=== PATIENT | female | born 1995 | race American Indian/Alaskan Native ===

== ENCOUNTER 2019-07-12 17:41 | Observation (INO) | payer MEDICAID ==
--- NOTE | 2019-07-12 19:08 | Emergency Department Report ---
Blank Doc - Documentation Documentation: 23-year-old female that presents with right side abdominal pain with n/v. This initial assessment/diagnostic orders/clinical plan/treatment(s) is/are subject to change based on patient's health status, clinical progression and re- assessment by fellow clinical providers in the ED. Further treatment and workup at subsequent clinical providers discretion. Patient/guardians urged not to elope from the ED as their condition may be serious if not clinically assessed and managed. Initial orders include: 1- Patient sent to [facility] for further evaluation and treatment 2- labs 3- UA
[2019-07-12 20:33] LABS: Hematocrit 24.9 % (30.3-42.9); Hemoglobin 7.1 gm/dl (10.1-14.3); Mean Corpuscular HGB Conc 29 % (30-34); Mean Corpuscular Volume 54 fl (79-97); Red Blood Count 4.63 M/mm3 (3.65-5.03)
[2019-07-12 20:34] LABS: Red Cell Distribution Width 20.6 % (13.2-15.2)
[2019-07-12 20:35] LABS: Alanine Aminotransferase 9 units/L (7-56); Albumin 4.4 g/dL (3.9-5); BUN/Creatinine Ratio 17; Blood Urea Nitrogen 10 mg/dL (7-17); Calcium 9.2 mg/dL (8.4-10.2); Hemolysis Index 2
[2019-07-12 21:21] LABS: Bilirubin,Urine NEG (Negative); Blood,Urine NEG (Negative); Color,Urine Yellow (Yellow); Mucus,Urine FEW /HPF; Protein,Urine <15 mg/dL mg/dL (Negative); Urobilinogen,Urine < 2.0 mg/dL (<2.0)
[2019-07-12 21:54] LABS: Anisocytosis 2+; Macrocytosis Few; Total Cells Counted 100
[2019-07-12 21:55] LABS: Hypochromasia 2+; Target Cells Few
[2019-07-12 21:56] LABS: Platelet Estimate Consistent w Auto; Tear Drop Cells Rare
[2019-07-12 22:02] LABS: Platelet Count 197 K/mm3 (140-440)
[2019-07-12] MEDS ORDERED: SODIUM CHLORIDE 0.9% 1000 ML 1,000 ML IV ONE (23:13)
[2019-07-12] MEDS ORDERED: KETOROLAC 30 MG/1 ML INJ IV ONE (23:13)
[2019-07-12] MEDS ORDERED: ONDANSETRON 4 MG/2 ML INJ IV ONE (23:13)
--- NOTE | 2019-07-13 00:59 | Cat Scan Report ---
CT ABDOMEN AND PELVIS WITH IV CONTRAST INDICATION: abdominal pain: RLQ pain. COMPARISON: None available. TECHNIQUE: Axial CT images were obtained through the abdomen and pelvis after 100 mL IV contrast. All CT scans a t this location are performed using CT dose reduction for ALARA by means of automated exposure contro l. FINDINGS -- ABDOMEN: Lung Bases: No acute abnormality. Liver: Normal. Gallbladder: Normal. Bile Ducts: Normal. Pancreas: Normal. Spleen: Normal. Adrenals: Normal. Right Kidney and Proximal Ureter: Normal. Left Kidney and Proximal Ureter: Normal. Stomach and Bowel: Normal. Lymph Nodes: No significant adenopathy. Aorta: No significant abnormality. IVC: Normal. Additional Findings: None. FINDINGS -- PELVIS: Urinary Bladder and Distal Ureters: Normal. Reproductive Organs: No acute abnormality. Appendix: Acute appendicitis.. Bowel: No acute abnormality. Free Fluid: None. Lymph Nodes: No significant adenopathy. Additional Findings: None. Skeletal System: No acute abnormality. IMPRESSION: Acute appendicitis. No perforation or abscess. Signer Name: Buster Riojas MD Signed: 07/13/2019 12:54 AM Workstation Name: [id number]
--- NOTE | 2019-07-13 02:37 | Emergency Department Report ---
<KATHYVALARIE - Last Filed: 07/13/19 03:13> ED Abdominal Pain HPI - General Chief Complaint: Abdominal Pain Stated Complaint: PAIN Time Seen by Provider: 07/12/19 19:07 - Related Data Allergies Allergy/AdvReac Type Severity Reaction Status Date / Time No Known Allergies Allergy Unverified 07/12/19 17:46 ED Medical Decision Making - Lab Data Result diagrams: 07/12/19 19:21 07/12/19 19:21 - Medical Decision Making Ms. Bowser is a 23-year-old female with history of iron deficiency anemia who pr esents with 3 days of right lower quadrant abdominal pain. Pain is worse with movement and palpation. She has history of 3. Also has history of asthma. She does smoke tobacco. I evaluated the patient [id number]. Review CT abdomen and pelvis. Patient has acute appendicitis without perforation or abscess. She is currently not exhibiting signs of SIRS/sepsis. I had a consultation general surgeon combination machine tool operator Dr. Scott. He has agreed to provide surgical consultation for the patient. He plans to take patient to the OR this morning. ED Disposition Clinical Impression: Acute abdominal pain in right lower quadrant Acute appendicitis Qualifiers: Acute appendicitis type: unspecified acute appendicitis type Qualified Code(s): K35.80 - Unspecified acute appendicitis Disposition: OP ADMIT IP TO THIS HOSP Condition: Stable Instructions: Abdominal Pain (ED) Referrals: PRIMARY CARE, [Primary Care Provider] - 3-5 Days Print Language: NEPALESE <DARELL MIDDLETON - Last Filed: 07/13/19 03:28> ED Abdominal Pain HPI - General Source: patient Mode of arrival: Ambulatory Limitations: No Limitations - History of Present Illness Initial Comments: Patient is a 23-year-old female with a history of chronic iron deficiency anemia and was noncompliant with taking iron tablets presents to the ED with complaint of acute onset persistent severe right lower quadrant abdominal pain that radiates to the periumbilical area for the last 2 days with nausea. Patient denies dysuria, urinary frequency and urgency, vaginal bleeding, vaginal discharge, dizziness, chest pain, shortness of breath, fever, chills, diarrhea, low back pain or hematuria. MD Complaint: abdominal pain, other (nausea and vomiting) -: Sudden, days(s) (2) Location: periumbilical, RLQ Radiation: RLQ Migration to: no migration Severity scale (0 -10): 7 Quality: aching, sharp Consistency: constant Improves With: nothing Worsens With: nothing Associated Symptoms: denies other symptoms, nausea. denies: vomiting, diarrhea, fever, chills, dysuria, hematemesis, hematochezia, melena, anorexia, syncope ED Review of Systems ROS: Stated complaint: PAIN Other details as noted in HPI Constitutional: denies: chills, fever Eyes: denies: eye pain, eye discharge, vision change ENT: denies: ear pain, throat pain Respiratory: denies: cough, shortness of breath, wheezing Cardiovascular: denies: chest pain, palpitations Endocrine: no symptoms reported Gastrointestinal: abdominal pain, nausea. denies: diarrhea, constipation, hematemesis Genitourinary: denies: urgency, dysuria, discharge Musculoskeletal: denies: back pain, joint swelling, arthralgia Skin: denies: rash, lesions Neurological: denies: headache, weakness, paresthesias Psychiatric: denies: anxiety, depression Hematological/Lymphatic: denies: easy bleeding, easy bruising ED Past Medical Hx - Past Medical History Previous Medical History?: Yes Hx Asthma: Yes Additional medical history: Anemia - Surgical History Past Surgical History?: Yes Additional Surgical History: C section - Social History Smoking Status: Never Smoker Substance Use Type: None ED Physical Exam - General Limitations: No Limitations General appearance: alert, in no apparent distress - Head Head exam: Present: atraumatic, normocephalic, normal inspection - Eye Eye exam: Present: normal appearance, PERRL, EOMI Pupils: Present: normal accommodation - ENT ENT exam: Present: normal exam, normal orophraynx, mucous membranes moist, TM's normal bilaterally, normal external ear exam - Neck Neck exam: Present: normal inspection, full ROM - Respiratory Respiratory exam: Present: normal lung sounds bilaterally. Absent: respiratory distress, wheezes, rales, stridor, chest wall tenderness, accessory muscle use, decreased breath sounds - Cardiovascular Cardiovascular Exam: Present: regular rate, normal rhythm, normal heart sounds. Absent: systolic murmur, diastolic murmur, rubs, gallop - GI/Abdominal GI/Abdominal exam: Present: soft, tenderness (RLQ tenderness with guarding), normal bowel sounds. Absent: guarding, rebound, hyperactive bowel sounds, hypoactive bowel sounds, organomegaly, mass - Extremities Exam Extremities exam: Present: normal inspection, full ROM, normal capillary refill - Back Exam Back exam: Present: normal inspection, full ROM. Absent: tenderness, muscle sp asm, paraspinal tenderness, vertebral tenderness - Neurological Exam Neurological exam: Present: alert, oriented X3, CN II-XII intact, normal gait, reflexes normal - Psychiatric Psychiatric exam: Present: normal affect, normal mood - Skin Skin exam: Present: warm, dry, intact, normal color. Absent: rash ED Course Vital Signs 07/12/19 07/12/19 07/12/19 19:10 23:39 23:40 Temperature 98.5 F 98.8 F Pulse Rate 79 75 Respiratory 18 16 16 Rate Blood Pressure 125/74 Blood Pressure 112/69 [Left] O2 Sat by Pulse 100 100 Oximetry ED Medical Decision Making - Lab Data Result diagrams: 07/12/19 19:21 07/12/19 19:21 - Radiology Data Radiology results: report reviewed, [place] [address] Cat Scan Report Signed Patient: AYDEE BOWSER MR#: [id number] : 1995 Acct:[id number] Age/Sex: 23 / F ADM Date: 07/12/19 Loc: ED Attending Dr: Ordering Physician: HERI SALTER Date of Service: 07/12/19 Procedure(s): CT abdomen pelvis w con Accession Number(s): [id number] cc: HERI SALTER CT ABDOMEN AND PELVIS WITH IV CONTRAST INDICATION: abdominal pain: RLQ pain. COMPARISON: None available. TECHNIQUE: Axial CT images were obtained through the abdomen and pelvis after 100 mL IV contrast. All CT scans at this location are performed using CT dose reduction for ALARA by means of automated exposure control. FINDINGS -- ABDOMEN: Lung Bases: No acute abnormality. Liver: Normal. Gallbladder: Normal. Bile Ducts: Normal. Pancreas: Normal. Spleen: Normal. Adrenals: Normal. Right Kidney and Proximal Ureter: Normal. Left Kidney and Proximal Ureter: Normal. Stomach and Bowel: Normal. Lymph Nodes: No significant adenopathy. Aorta: No significant abnormality. IVC: Normal. Additional Findings: None. FINDINGS -- PELVIS: Urinary Bladder and Distal Ureters: Normal. Reproductive Organs: No acute abnormality. Appendix: Acute appendicitis.. Bowel: No acute abnormality. Free Fluid: None. Lymph Nodes: No significant adenopathy. Additional Findings: None. Skeletal System: No acute abnormality. IMPRESSION: Acute appendicitis. No perforation or abscess. Signer Name: Buster Riojas MD Signed: 07/13/2019 12:54 AM Workstation Name: [id number] Transcribed By: Dictated By: Buster Riojas MD Electronically Authenticated By: Buster Riojas MD Signed Date/Time: 07/13/19 0054 - Medical Decision Making This is a 23-year-old female who presented to the ED with complaint of acute onset persistent severe right lower quadrant pain that radiates to the periumbilical area with nausea for the last 2 days. In the ED, patient is alert and oriented 3 and is not in distress but appears to be in pain. Lab test results were reviewed and showed chronic anemia characterized by hemoglobin of 7.1 and hematocrit of 24.9. The rest of the lab test results are nonactionable. Abdomen pelvis CT scan with contrast shows acute appendicitis. These findings were discussed with the ED attending physician Dr. Chow who discussed the patient's case with Dr. Schwab the general surgeon combination machine tool operator. The patient's case was also discussed with the Hospitalist physician combination machine tool operator Dr. Unger who admitted the patient to the hospital for further evaluation. - Differential Diagnosis acuet appendicitis; ovarian cyst; UTI; Ectopic ; gastroenteritis Critical care attestation.: If time is entered above; I have spent that time in minutes in the direct care of this critically ill patient, excluding procedure time. ED Disposition Is pt being admited?: Yes Does the pt Need Aspirin: No Time of Disposition: 02:41
[2019-07-13] MEDS ORDERED: SODIUM CHLORIDE 0.9% 1000 ML 1,000 ML IV ONE (03:18)
[2019-07-13] MEDS ORDERED: PIPERACIL/TAZOBACTA 4.5/NS 100 4.5 GM/100 ML VIAL IV ONE (03:18)
[2019-07-13] MEDS ORDERED: MORPHINE 4 MG/1 ML INJ IV ONE (03:18)
[2019-07-13] MEDS ORDERED: ACETAMINOPHEN 325 MG TAB PO PRN (04:02)
[2019-07-13] MEDS ORDERED: MORPHINE 2 MG/1 ML INJ IV PRN (04:02)
[2019-07-13] MEDS ORDERED: ONDANSETRON 4 MG/2 ML INJ IV PRN ×2 (04:02→04:29)
--- NOTE | 2019-07-13 04:03 | History and Physical Report ---
History of Present Illness History of present illness: 23-year-old boy with a history of asthma, anemia comes emergency room with complaints of abdominal pain that started 3 days ago. Pain is in right lower quadrant which he describes a sharp pain, intermittent but has now become constant today, intensity 7/10, no radiation, cannot identify exacerbating factor, relieved with IV pain medication given in the emergency room. Admits to nausea vomiting review of systems Constitutional: no weight loss, fever, chills Ears, eyes, nose, mouth and throat: no nasal congestion, no nasal discharge, no sinus pressure, blurry vision, diplopia Neck: No neck pain or rigidity. Cardiovascular: No palpitations,chest pain Respiratory: No cough, shortness of breath Gastrointestinal: No hematochezia, abdominal pain Genitourinary : no dysuria, frequency , hematuria Musculoskeletal: no muscle ache , joint pain Integumentary: no rash, no pruritis Neurological: no parathesias, focal weakness Endocrine: no cold or heat intolerance, no polyuria or polydipsia Hematologic/Lymphatic: no easy bruising, no easy bleeding, no gland swelling Allergic/Immunologic: no urticaria, no angioedema. PAST MEDICAL HISTORY :asthma, anemia PAST SURGICAL HISTORY: C/section x3 SOCIAL HISTORY: No drugs, alcohol, + tobacco FAMILY HISTORY: Hypertension Medications and Allergies Allergies Allergy/AdvReac Type Severity Reaction Status Date / Time No Known Allergies Allergy Unverified 07/12/19 17:46 Home Medications Medication Instructions Recorded Confirmed Last Taken Type Ferrous Sulfate [Ferrous Sulfate 324 mg PO TID #90 tablet. 07/15/19 Unknown Rx 324 MG] HYDROcodone/APAP 5-325 [[place] 1 each PO Q6HR PRN #20 tablet 07/15/19 Unknown Rx 5/325] levoFLOXacin [Levaquin TAB] 500 mg PO QDAY #5 tablet 07/15/19 Unknown Rx Active Meds: Active Medications Sodium Chloride (Nacl 0.9% 1000 Ml) 1,000 mls @ 999 mls/hr IV BOLUS ONE Stop: 07/13/19 04:18 Exam - Physical Exam Narrative exam: Gen. appearance: Patient lying in bed, no apparent distress HEENT: Normocephalic, atraumatic, pupils equally round and reactive to light, extraocular movement intact, and no sclericterus,. No JVD or thyromegaly or nodule,neck supple, no carotid bruit ,mucous membranes moist, no exudate or erythema Heart: S1, S2, regular rate and rhythm Lungs: Clear bilaterally, breathing comfortable Abdomen: Positive bowel sounds, tender in the rlq, no rebound or guarding, nondistended, no organomegaly Extremity:no edema cyanosis, clubbing Skin: no rash, dry, warm Neuro: Oriented 3, cranial nerves II-12 intact, speech is fluent, motor and sensory intact - Constitutional Vitals: Temp Pulse Resp BP Pulse Ox 98.8 F 75 16 112/69 100 07/12/19 23:39 07/12/19 23:39 07/12/19 23:40 07/12/19 23:39 07/12/19 23:39 Results - Labs CBC & Chem 7: 07/15/19 05:46 07/14/19 05:31 Labs: Abnormal lab results 07/12/19 07/12/19 Range/Units 19:21 19:21 Hgb 7.1 L (10.1-14.3) gm/dl Hct 24.9 L (30.3-42.9) % MCV 54 L (79-97) fl MCH 15 L (28-32) pg MCHC 29 L (30-34) % RDW 20.6 H (13.2-15.2) % Creatinine 0.6 L (0.7-1.2) mg/dL Total Protein 8.9 H (6.3-8.2) g/dL - Imaging and Cardiology CT scan - abdomen: report reviewed CT scan - pelvis: report reviewed Assessment and Plan Assessment Acute Appendicitis anemia Asthma, stable Plan Admit to medicine NPO, start IV fluid, morphine Surgery was consulted to see the patient Hold lovenox
[2019-07-13] MEDS ORDERED: LIDOCAINE MPF (2%) 20 MG/1 ML VIAL 5 ML ONE (04:21)
[2019-07-13] MEDS ORDERED: PROPOFOL 200 MG/20 ML VIAL IV ONE (04:21)
[2019-07-13] MEDS ORDERED: ROCURONIUM 50 MG/5 ML INJ IV ONE (04:21)
[2019-07-13] MEDS ORDERED: HYDROmorphone 1 MG/1 ML INJ ONE (04:21)
[2019-07-13] MEDS ORDERED: fentaNYL 100 MCG/2 ML INJ IV PRN (04:29)
[2019-07-13] MEDS ORDERED: BUPIVACAINE/PF (0.5%) 5 MG/1 ML 30 ML VIAL INFILTRATI ONE (04:30)
[2019-07-13] MEDS ORDERED: BUPIVACAINE-EPINEPHRINE/PF 0.5%-1:200,000 (30 ML) VIAL INFILTRATI ONE ×2 (04:31→05:45)
--- NOTE | 2019-07-13 04:33 | Anesthesia Day of Surgery ---
Anesthesia Day of Surgery - Day of Surgery Patient Examined: Yes Patient H&P Reviewed: Yes Patient is NPO: Yes
--- NOTE | 2019-07-13 04:35 | Anesthesia Consultation ---
Anesthesia Consult and Med Hx Date of service: 07/13/19 - Airway Anesthetic Teeth Evaluation: Chipped ROM Head & Neck: Adequate Mental/Hyoid Distance: Adequate Mallampati Class: Class II Intubation Access Assessment: Good - Pre-Operative Health Status ASA Pre-Surgery Classification: ASA2, Emergency Proposed Anesthetic Plan: General - Pulmonary Hx Smoking: Yes Hx Asthma: Yes (Stable) Hx Respiratory Symptoms: Yes (Had SOB from panic attack a few weeks ago) - Central Nervous System Hx Psychiatric Problems: Yes (Anxiety/panic D/O) - Gastrointestinal Hx Gastroesophageal Reflux Disease: No - Hematic Hx Anemia: Yes (Iron deficiency; non-compliant with FeSO4 RX) Hx Sickle Cell Disease: No
[2019-07-13] MEDS ORDERED: SODIUM CHLORIDE 0.9% 1000 ML 1,000 ML IV SCH (05:00)
--- NOTE | 2019-07-13 05:04 | History and Physical Report ---
ADMITTING DIAGNOSIS: Rule out appendicitis. HISTORY OF PRESENT ILLNESS: The patient is a healthy 23-year-old female who presents to the Emergency Room with a 3-day history of progressively worsening right lower quadrant abdominal pain accompanied by nausea and vomiting. PAST MEDICAL HISTORY: Pertinent for asthma, anxiety, and anemia. PAST SURGICAL HISTORY: Status post x 3. ALLERGIES: No known allergies. MEDICATIONS: No medications. FAMILY HISTORY: Diabetes. SOCIAL HISTORY: Occasional cigarettes and denies any drinking. PHYSICAL EXAMINATION: GENERAL: At this time reveals the patient to be awake, alert, cooperative, in moderate discomfort, but no acute distress. VITAL SIGNS: Show her to be afebrile with a temperature of 98.8, blood pressure is 112/69, pulse of 72, respirations of 16. HEENT: Pupils are equal and reactive to light and accommodation. Sclerae are nonicteric. NECK: Full range of motion, no adenopathy or thyromegaly. CHEST: Lungs are clear to auscultation and percussion. HEART: Normal sinus rhythm, no gross murmurs. ABDOMEN: Examination of the abdomen reveals to be soft. There is localized right lower quadrant abdominal tenderness with mild guarding. Bowel sounds are present, but hypoactive. EXTREMITIES: Show full range of motion x 4, no edema or cyanosis. NEUROLOGIC: Grossly within normal limits. LABORATORY DATA: Lab work at present includes a CBC shows a white count of 7.1, H and H is 7.1 and 24.9. Electrolytes are essentially within normal limits. LFTs are also within normal limits. Lipase is 25. A CT scan of the abdomen has been performed, which is consistent with acute appendicitis. No evidence of perforation or abscess at this time. IMPRESSION: At this time is that of a 23-year-old female with past history of anemia, rule out appendicitis. PLAN: To proceed with laparoscopic appendectomy, possible open appendectomy. Risks, indications, and complications have been reviewed with the patient and family. The patient understands and has signed her consent. JOB# [id number] FP/NTS
[2019-07-13] MEDS ORDERED: SODIUM CHLORIDE 0.9% IRR 1,500 ML BOTTLE IR ONE (05:45)
[2019-07-13] MEDS ORDERED: ONDANSETRON 4 MG/2 ML INJ ONE (05:47)
[2019-07-13] MEDS ORDERED: NEOSTIGMINE 10MG/10 ML INJ MDV ONE (05:47)
[2019-07-13] MEDS ORDERED: KETOROLAC 30 MG/1 ML INJ ONE (05:47)
[2019-07-13] MEDS ORDERED: GLYCOPYRROLATE 0.4 MG/2 ML INJ ONE (05:47)
[2019-07-13] MEDS ORDERED: SODIUM CHLORIDE 0.9% 1000 ML 1,000 ML ONE (06:10)
[2019-07-13] MEDS ORDERED: fentaNYL 100 MCG/2 ML INJ ONE (06:36)
--- NOTE | 2019-07-13 06:40 | Operative Report ---
PREOPERATIVE DIAGNOSIS: Rule out appendicitis. POSTOPERATIVE DIAGNOSIS: Rule out appendicitis. PROCEDURE: Laparoscopic appendectomy. SURGEON: Elias Schwab MD ANESTHESIA: General. ESTIMATED BLOOD LOSS: Minimal. DRAINS: None. COMPLICATIONS: None. DESCRIPTION OF PROCEDURE: The patient was taken to the operating room, prepped and draped in usual sterile fashion. Veress needle was inserted and CO2 insufflation begun. A 5 mm trocar was then inserted and camera inserted. All other trocars inserted under direct visualization. The patient was then placed in a steep Trendelenburg left lateral decubitus position. The cecum was identified and the tenia followed down to the appendix. The appendiceal tip was noted to be somewhat thickened. The mesoappendix was transected with the Harmonic. The base of the appendix was secured with a MARIA R stapler. The staple line was then carefully inspected and noted to be secure with no evidence of bleeding or bile leak. No other bleeding was noted in the area of the mesoappendix. The appendix was then placed in the Endopouch and brought out through the infraumbilical port site. This area had an umbilical hernia noted at this site and the tissues were all very weak. The patient's entire abdominal musculature is weak secondary to her 3 C-sections. The fascia at the umbilicus was then closed with 2 [id number] 0 Vicryl suture due to its weakness. The staple line was inspected through the lateral 5 mm port site to assure no entrapment of bowel or omentum, none were seen. The two lateral 5 mm ports were removed under direct visualization. No bleeding or oozing noted. The final 5 mm port was used to expel the CO2 and the trocar removed. The skin at all port sites were closed with subcuticular 4-0 Vicryl. A 0.5% Marcaine was infiltrated over the port site for postoperative pain relief. Because of her abdominal weakness and umbilical hernia noted, abdominal binder will also be placed. The patient tolerated the procedure well and left the OR in stable condition. JOB# [id number] LESLIE/REJI
[2019-07-13] MEDS ORDERED: diphenhydrAMINE 50 MG/ML VIAL ONE (06:49)
[2019-07-13] MEDS: diphenhydrAMINE 50 MG/ML VIAL IV PRN ×2 (06:50→07:00)
[2019-07-13] MEDS ORDERED: ENOXAPARIN 40 MG/0.4 ML INJ SUB-Q SCH (10:00)
[2019-07-13] MEDS: ONDANSETRON 4 MG/2 ML INJ IV PRN ×2 (11:32→21:36)
[2019-07-13] MEDS: MORPHINE 2 MG/1 ML INJ IV PRN ×4 (11:33→21:35)
[2019-07-13] MEDS: D5W/0.45% NACL 1,000 ML IV SCH (12:08)
[2019-07-13] MEDS ORDERED: ALBUTEROL 2.5 MG/3 ML NEBU IH PRN (15:25)
--- NOTE | 2019-07-13 15:28 | Progress Note ---
Assessment and Plan Assessment and plan: Acute Appendicitis -Status post appendectomy -On when necessary narcotics and IV antibiotic with levofloxacin -Surgery following Chronic microcytic anemia -Will check anemia panel -Will monitor H&H and transfuse for hb<7 Asthma -stable -On PRN neb tx Cough -on Mucinex DVT prophylaxis: SCD Disposition: For discharge when cleared by surgery and medically stable History Interval history: Patient was seen post surgery and she reports right-sided abdominal pain rated 10/10. She also complained of cough Hospitalist Physical - Constitutional Vitals: Temp Pulse Resp BP Pulse Ox 98.2 F 73 16 112/57 99 07/13/19 07:30 07/13/19 07:30 07/13/19 07:30 07/13/19 07:30 07/13/19 07:57 General appearance: Present: no acute distress - EENT Eyes: Present: PERRL, EOM intact ENT: hearing intact, clear oral mucosa - Neck Neck: Present: supple - Respiratory Respiratory effort: normal Respiratory: bilateral: CTA - Cardiovascular Rhythm: regular Heart Sounds: Present: S1 & S2 - Extremities Extremities: No edema - Abdominal General gastrointestinal: soft, tender (RT side), non-distended, normal bowel sounds - Integumentary Integumentary: Present: warm, dry - Psychiatric Psychiatric: appropriate mood/affect - Neurologic Neurologic: CNII-XII intact Results - Labs CBC & Chem 7: 07/12/19 19:21 07/12/19 19:21 Labs: Laboratory Last Values WBC 7.1 K/mm3 (4.5-11.0) 07/12/19 19:21 RBC 4.63 M/mm3 (3.65-5.03) 07/12/19 19:21 Hgb 7.1 gm/dl (10.1-14.3) L 07/12/19 19:21 Hct 24.9 % (30.3-42.9) L 07/12/19 19:21 MCV 54 fl (79-97) L 07/12/19 19:21 MCH 15 pg (28-32) L 07/12/19 19:21 MCHC 29 % (30-34) L 07/12/19 19:21 RDW 20.6 % (13.2-15.2) H 07/12/19 19:21 Plt Count 197 K/mm3 (140-440) 07/12/19 19:21 Add Manual Diff Complete 07/12/19 19:21 Total Counted 100 07/12/19 19:21 Seg Neuts % (Manual) 67.0 % (40.0-70.0) 07/12/19 19:21 Band Neutrophils % 0 % 07/12/19 19:21 Lymphocytes % (Manual) 29.0 % (13.4-35.0) 07/12/19 19:21 Reactive Lymphs % (Man) 0 % 07/12/19 19:21 Monocytes % (Manual) 2.0 % (0.0-7.3) 07/12/19 19:21 Eosinophils % (Manual) 1.0 % (0.0-4.3) 07/12/19 19:21 Basophils % (Manual) 1.0 % (0.0-1.8) 07/12/19 19:21 Metamyelocytes % 0 % 07/12/19 19:21 Myelocytes % 0 % 07/12/19 19:21 Promyelocytes % 0 % 07/12/19 19:21 Blast Cells % 0 % 07/12/19 19:21 Nucleated RBC % Not Reportable 07/12/19 19:21 Seg Neutrophils # Man 4.8 K/mm3 (1.8-7.7) 07/12/19 19:21 Band Neutrophils # 0.0 K/mm3 07/12/19 19:21 Lymphocytes # (Manual) 2.1 K/mm3 (1.2-5.4) 07/12/19 19:21 Abs React Lymphs (Man) 0.0 K/mm3 07/12/19 19:21 Monocytes # (Manual) 0.1 K/mm3 (0.0-0.8) 07/12/19 19:21 Eosinophils # (Manual) 0.1 K/mm3 (0.0-0.4) 07/12/19 19:21 Basophils # (Manual) 0.1 K/mm3 (0.0-0.1) 07/12/19 19:21 Metamyelocytes # 0.0 K/mm3 07/12/19 19:21 Myelocytes # 0.0 K/mm3 07/12/19 19:21 Promyelocytes # 0.0 K/mm3 07/12/19 19:21 Blast Cells # 0.0 K/mm3 07/12/19 19:21 WBC Morphology Not Reportable 07/12/19 19:21 Hypersegmented Neuts Not Reportable 07/12/19 19:21 Hyposegmented Neuts Not Reportable 07/12/19 19:21 Hypogranular Neuts Not Reportable 07/12/19 19:21 Smudge Cells Not Reportable 07/12/19 19:21 Toxic Granulation Not Reportable 07/12/19 19:21 Toxic Vacuolation Not Reportable 07/12/19 19:21 Dohle Bodies Not Reportable 07/12/19 19:21 Pelger-Huet Anomaly Not Reportable 07/12/19 19:21 Amara Rods Not Reportable 07/12/19 19:21 Platelet Estimate Consistent w auto 07/12/19 19:21 Clumped Platelets Not Reportable 07/12/19 19:21 Plt Clumps, EDTA Not Reportable 07/12/19 19:21 Large Platelets Not Reportable 07/12/19 19:21 Giant Platelets Not Reportable 07/12/19 19:21 Platelet Satelliting Not Reportable 07/12/19 19:21 Plt Morphology Comment Not Reportable 07/12/19 19:21 RBC Morphology Not Reportable 07/12/19 19:21 Dimorphic RBCs Not Reportable 07/12/19 19:21 Polychromasia Few 07/12/19 19:21 Hypochromasia 2+ 07/12/19 19:21 Poikilocytosis Not Reportable 07/12/19 19:21 Anisocytosis 2+ 07/12/19 19:21 Microcytosis 1+ 07/12/19 19:21 Macrocytosis Few 07/12/19 19:21 Spherocytes Not Reportable 07/12/19 19:21 Pappenheimer Bodies Not Reportable 07/12/19 19:21 Sickle Cells Not Reportable 07/12/19 19:21 Target Cells Few 07/12/19 19:21 Tear Drop Cells Rare 07/12/19 19:21 Ovalocytes Not Reportable 07/12/19 19:21 Helmet Cells Not Reportable 07/12/19 19:21 [place] Bodies Not Reportable 07/12/19 19:21 [place] Rings Not Reportable 07/12/19 19:21 [place] Cells Not Reportable 07/12/19 19:21 Bite Cells Not Reportable 07/12/19 19:21 Crenated Cell Not Reportable 07/12/19 19:21 Elliptocytes Not Reportable 07/12/19 19:21 Acanthocytes (Spur) Not Reportable 07/12/19 19:21 Rouleaux Not Reportable 07/12/19 19:21 Hemoglobin C Crystals Not Reportable 07/12/19 19:21 Schistocytes Not Reportable 07/12/19 19:21 Malaria parasites Not Reportable 07/12/19 19:21 Greg Bodies Not Reportable 07/12/19 19:21 Hem Pathologist Commnt No 07/12/19 19:21 Sodium 139 mmol/L (137-145) 07/12/19 19:21 Potassium 3.7 mmol/L (3.6-5.0) 07/12/19 19:21 Chloride 104.4 mmol/L (98-107) 07/12/19 19:21 Carbon Dioxide 25 mmol/L (22-30) 07/12/19 19:21 Anion Gap 13 mmol/L 07/12/19 19:21 BUN 10 mg/dL (7-17) 07/12/19 19:21 Creatinine 0.6 mg/dL (0.7-1.2) L 07/12/19 19:21 Estimated GFR > 60 ml/min 07/12/19 19:21 BUN/Creatinine Ratio 17 % 07/12/19 19:21 Glucose 76 mg/dL (65-100) 07/12/19 19:21 Calcium 9.2 mg/dL (8.4-10.2) 07/12/19 19:21 Total Bilirubin 0.30 mg/dL (0.1-1.2) 07/12/19 19:21 AST 16 units/L (5-40) 07/12/19 19:21 ALT 9 units/L (7-56) 07/12/19 19:21 Alkaline Phosphatase 49 units/L (35-129) 07/12/19 19:21 Total Protein 8.9 g/dL (6.3-8.2) H 07/12/19 19:21 Albumin 4.4 g/dL (3.9-5) 07/12/19 19:21 Albumin/Globulin Ratio 1.0 % 07/12/19 19:21 Lipase 25 units/L (13-60) 07/12/19 19:21 HCG, Qual Negative (Negative) 07/12/19 19:21 Urine Color Yellow (Yellow) 07/12/19 20:53 Urine Turbidity Clear (Clear) 07/12/19 20:53 Urine pH 5.0 (5.0-7.0) 07/12/19 20:53 Ur Specific [place] 1.012 (1.003-1.030) 07/12/19 20:53 Urine Protein <15 mg/dl mg/dL (Negative) 07/12/19 20:53 Urine Glucose (UA) Neg mg/dL (Negative) 07/12/19 20:53 Urine Ketones Neg mg/dL (Negative) 07/12/19 20:53 Urine Blood Neg (Negative) 07/12/19 20:53 Urine Nitrite Neg (Negative) 07/12/19 20:53 Urine Bilirubin Neg (Negative) 07/12/19 20:53 Urine Urobilinogen < 2.0 mg/dL (<2.0) 07/12/19 20:53 Ur Leukocyte Esterase Neg (Negative) 07/12/19 20:53 Urine WBC (Auto) 1.0 /HPF (0.0-6.0) 07/12/19 20:53 Urine RBC (Auto) 2.0 /HPF (0.0-6.0) 07/12/19 20:53 U Epithel Cells (Auto) 3.0 /HPF (0-13.0) 07/12/19 20:53 Urine Mucus Few /HPF 07/12/19 20:53 Blood Type A POSITIVE 07/12/19 21:50 Antibody Screen Positive 07/12/19 21:50 Antibody Identification Anti-Sofia 07/12/19 21:50 Crossmatch See Detail 07/12/19 21:50 Active Medications - Current Medications Current Medications: Generic Name Dose Route Start Last Admin Trade Name Freq PRN Reason Stop Dose Admin Acetaminophen 650 mg 07/13/19 04:02 Tylenol PO Q4H PRN Pain MILD(1-3)/Fever >100.5/HERNANDEZ Fentanyl 50 mcg 07/13/19 04:29 07/13/19 06:35 Sublimaze IV 50 mcg Q5MIN PRN Administration Pain , Severe (7-10) Dextrose/Sodium Chloride 1,000 mls @ 125 mls/hr 07/13/19 07:00 D5/0.45ns IV DIRECT JAQUI Levofloxacin/Dextrose 500 mg in 100 mls @ 100 mls/hr 07/13/19 10:00 07/13/19 11:32 Levaquin 500mg/100ml IV 07/16/19 09:59 100 mls/hr Q24HR JAQUI Administration Protocol Morphine Sulfate 2 mg 07/13/19 06:09 07/13/19 11:33 Morphine IV 2 mg Q3H PRN Administration Pain, Moderate (4-6) Ondansetron HCl 4 mg 07/13/19 06:09 07/13/19 11:32 Zofran IV 4 mg Q4H PRN Administration N/V unrelieved by Sabrina Sodium Chloride 10 ml 07/13/19 10:00 07/13/19 11:33 Sodium Chloride Flush Syringe 10 Ml IV 10 ml BID JAQUI Administration Sodium Chloride 10 ml 07/13/19 04:02 Sodium Chloride Flush Syringe 10 Ml IV PRN PRN LINE FLUSH
--- NOTE | 2019-07-13 15:52 | Post Anesthesia Evaluation ---
- Post Anesthesia Evaluation Patient Participated: Yes Airway Patent: Yes Stable Respiratory Function: Yes Nausea/Vomiting: No Temp > 96.8F: Yes Pain Manageable: Yes Adequeate Hydration: Yes Anesthesia Complications: No Block Receding Appropriately: Not Applicable Patient on Ventilator: No
[2019-07-13] MEDS ORDERED: guaiFENesin ER 600 MG TAB PO SCH (16:00)
[2019-07-13] MEDS ORDERED: BENZONATATE 100 MG CAP PO PRN (18:57)
[2019-07-14] MEDS: D5W/0.45% NACL 1,000 ML IV SCH (00:10)
[2019-07-14] MEDS: MORPHINE 2 MG/1 ML INJ IV PRN ×5 (06:03→21:01)
[2019-07-14 06:36] LABS: Basophils % (Auto) 0.7 % (0.0-1.8); Eosinophils # (Auto) 0.1 K/mm3 (0.0-0.4); Eosinophils % (Auto) 2.8 % (0.0-4.3); Lymphocytes # (Auto) 1.5 K/mm3 (1.2-5.4); Lymphocytes % (Auto) 28.3 % (13.4-35.0); Mean Corpuscular HGB Conc 28 % (30-34); Monocytes # (Auto) 0.4 K/mm3 (0.0-0.8); Monocytes % (Auto) 7.3 % (0.0-7.3); Red Blood Count 3.92 M/mm3 (3.65-5.03)
[2019-07-14 06:46] LABS: BUN/Creatinine Ratio 10; Blood Urea Nitrogen 6 mg/dL (7-17); Calcium 8.4 mg/dL (8.4-10.2); Hemolysis Index 1
[2019-07-14 06:57] LABS: Iron 13 ug/dL (37-170); Total Iron Binding Capacity 353 mcg/dL (250-450)
[2019-07-14 07:19] LABS: Hematocrit 21.4 % (30.3-42.9); Mean Corpuscular Volume 55 fl (79-97); Red Cell Distribution Width 20.2 % (13.2-15.2)
[2019-07-14 07:21] LABS: Hemoglobin 5.9 gm/dl (10.1-14.3)
--- NOTE | 2019-07-14 08:46 | Progress Note ---
Assessment and Plan POD #1 Pt feeling well. neg flatus Abd 1+ distended. incisional tenderness over infraumbilical port site. hypoactive BS h/h low at 5.9/21.4 but hemodynamically stable. pt has chronic anemia & h/h was 7.1/24.9 on admission. will transfuse 2 units prbc's now and monitor h/h post transfusion ileus ambulate down halls as tim Selected Entries 07/13/19 07/13/19 07/13/19 15:44 19:26 23:53 Temperature Pulse Rate 73 77 72 Respiratory Rate Blood Pressure 100/60 102/65 110/68 07/14/19 04:38 Temperature 98.3 F Pulse Rate 73 Respiratory 16 Rate Blood Pressure 107/68 Laboratory Tests 07/12/19 07/14/19 19:21 05:31 WBC 7.1 5.3 Hgb 7.1 L 5.9 L* Hct 24.9 L 21.4 L Objective Vital Signs - 12hr 07/13/19 07/14/19 23:53 04:38 Temperature 98.5 F 98.3 F Pulse Rate 72 73 Respiratory 16 16 Rate Blood Pressure 110/68 107/68 O2 Sat by Pulse 99 99 Oximetry - Labs 07/14/19 05:31 07/14/19 05:31 Diabetes panel 07/14/19 Range/Units 05:31 Sodium 137 (137-145) mmol/L Potassium 3.9 (3.6-5.0) mmol/L Chloride 105.1 (98-107) mmol/L Carbon Dioxide 24 (22-30) mmol/L BUN 6 L (7-17) mg/dL Creatinine 0.6 L (0.7-1.2) mg/dL Glucose 66 (65-100) mg/dL Calcium 8.4 (8.4-10.2) mg/dL Calcium panel 07/14/19 Range/Units 05:31 Calcium 8.4 (8.4-10.2) mg/dL Pituitary panel 07/14/19 Range/Units 05:31 Sodium 137 (137-145) mmol/L Potassium 3.9 (3.6-5.0) mmol/L Chloride 105.1 (98-107) mmol/L Carbon Dioxide 24 (22-30) mmol/L BUN 6 L (7-17) mg/dL Creatinine 0.6 L (0.7-1.2) mg/dL Glucose 66 (65-100) mg/dL Calcium 8.4 (8.4-10.2) mg/dL Adrenal panel 07/14/19 Range/Units 05:31 Sodium 137 (137-145) mmol/L Potassium 3.9 (3.6-5.0) mmol/L Chloride 105.1 (98-107) mmol/L Carbon Dioxide 24 (22-30) mmol/L BUN 6 L (7-17) mg/dL Creatinine 0.6 L (0.7-1.2) mg/dL Glucose 66 (65-100) mg/dL Calcium 8.4 (8.4-10.2) mg/dL
[2019-07-14 08:50] LABS: Platelet Count 152 K/mm3 (140-440)
[2019-07-14] MEDS ORDERED: SODIUM CHLORIDE 0.9% 500 ML 500 ML IV ONE ×2 (09:00→10:00)
--- NOTE | 2019-07-14 12:58 | Progress Note ---
Assessment and Plan Assessment and plan: Acute Appendicitis -Status post appendectomy POD #1 -cont PRN narcotics and IV antibiotic with levofloxacin -Surgery following Acute blood loss anemia, post-surgery -Pt to receive 2u of prbcs today -will monitor H/H Ileus -cont NPO status -on IVF -surgery following Asthma -stable -cont PRN neb tx Cough -cont PRN Tessalon perles DVT prophylaxis: SCD Disposition: For discharge when cleared by surgery and medically stable History Interval history: Patient has no new complaints. Her pain and cough are better Hospitalist Physical - Constitutional Vitals: Temp Pulse Resp BP Pulse Ox 98.3 F 70 18 107/69 99 07/14/19 11:48 07/14/19 11:48 07/14/19 11:48 07/14/19 11:48 07/14/19 11:48 General appearance: Present: no acute distress - EENT Eyes: Present: PERRL, EOM intact ENT: hearing intact, clear oral mucosa - Neck Neck: Present: supple - Respiratory Respiratory effort: normal Respiratory: bilateral: CTA - Cardiovascular Rhythm: regular Heart Sounds: Present: S1 & S2 - Extremities Extremities: No edema - Abdominal General gastrointestinal: soft, non-tender, distended, hypoactive bowel sounds - Integumentary Integumentary: Present: pale - Psychiatric Psychiatric: appropriate mood/affect - Neurologic Neurologic: CNII-XII intact Results - Labs CBC & Chem 7: 07/14/19 05:31 07/14/19 05:31 Labs: Laboratory Last Values WBC 5.3 K/mm3 (4.5-11.0) 07/14/19 05:31 RBC 3.92 M/mm3 (3.65-5.03) 07/14/19 05:31 Hgb 5.9 gm/dl (10.1-14.3) L* 07/14/19 05:31 Hct 21.4 % (30.3-42.9) L 07/14/19 05:31 MCV 55 fl (79-97) L 07/14/19 05:31 MCH 15 pg (28-32) L 07/14/19 05:31 MCHC 28 % (30-34) L 07/14/19 05:31 RDW 20.2 % (13.2-15.2) H 07/14/19 05:31 Plt Count 152 K/mm3 (140-440) 07/14/19 05:31 Lymph % (Auto) 28.3 % (13.4-35.0) 07/14/19 05:31 [place] % (Auto) 7.3 % (0.0-7.3) 07/14/19 05:31 Eos % (Auto) 2.8 % (0.0-4.3) 07/14/19 05:31 Baso % (Auto) 0.7 % (0.0-1.8) 07/14/19 05:31 Lymph # 1.5 K/mm3 (1.2-5.4) 07/14/19 05:31 [place] # 0.4 K/mm3 (0.0-0.8) 07/14/19 05:31 Eos # 0.1 K/mm3 (0.0-0.4) 07/14/19 05:31 Baso # 0.0 K/mm3 (0.0-0.1) 07/14/19 05:31 Add Manual Diff Complete 07/12/19 19:21 Total Counted 100 07/12/19 19:21 Seg Neutrophils % 60.9 % (40.0-70.0) 07/14/19 05:31 Seg Neuts % (Manual) 67.0 % (40.0-70.0) 07/12/19 19:21 Band Neutrophils % 0 % 07/12/19 19:21 Lymphocytes % (Manual) 29.0 % (13.4-35.0) 07/12/19 19:21 Reactive Lymphs % (Man) 0 % 07/12/19 19:21 Monocytes % (Manual) 2.0 % (0.0-7.3) 07/12/19 19:21 Eosinophils % (Manual) 1.0 % (0.0-4.3) 07/12/19 19:21 Basophils % (Manual) 1.0 % (0.0-1.8) 07/12/19 19:21 Metamyelocytes % 0 % 07/12/19 19:21 Myelocytes % 0 % 07/12/19 19:21 Promyelocytes % 0 % 07/12/19 19:21 Blast Cells % 0 % 07/12/19 19:21 Nucleated RBC % Not Reportable 07/12/19 19:21 Seg Neutrophils # 3.2 K/mm3 (1.8-7.7) 07/14/19 05:31 Seg Neutrophils # Man 4.8 K/mm3 (1.8-7.7) 07/12/19 19:21 Band Neutrophils # 0.0 K/mm3 07/12/19 19:21 Lymphocytes # (Manual) 2.1 K/mm3 (1.2-5.4) 07/12/19 19:21 Abs React Lymphs (Man) 0.0 K/mm3 07/12/19 19:21 Monocytes # (Manual) 0.1 K/mm3 (0.0-0.8) 07/12/19 19:21 Eosinophils # (Manual) 0.1 K/mm3 (0.0-0.4) 07/12/19 19:21 Basophils # (Manual) 0.1 K/mm3 (0.0-0.1) 07/12/19 19:21 Metamyelocytes # 0.0 K/mm3 07/12/19 19:21 Myelocytes # 0.0 K/mm3 07/12/19 19:21 Promyelocytes # 0.0 K/mm3 07/12/19 19:21 Blast Cells # 0.0 K/mm3 07/12/19 19:21 WBC Morphology Not Reportable 07/12/19 19:21 Hypersegmented Neuts Not Reportable 07/12/19 19:21 Hyposegmented Neuts Not Reportable 07/12/19 19:21 Hypogranular Neuts Not Reportable 07/12/19 19:21 Smudge Cells Not Reportable 07/12/19 19:21 Toxic Granulation Not Reportable 07/12/19 19:21 Toxic Vacuolation Not Reportable 07/12/19 19:21 Dohle Bodies Not Reportable 07/12/19 19:21 Pelger-Huet Anomaly Not Reportable 07/12/19 19:21 Amara Rods Not Reportable 07/12/19 19:21 Platelet Estimate Consistent w auto 07/12/19 19:21 Clumped Platelets Not Reportable 07/12/19 19:21 Plt Clumps, EDTA Not Reportable 07/12/19 19:21 Large Platelets Not Reportable 07/12/19 19:21 Giant Platelets Not Reportable 07/12/19 19:21 Platelet Satelliting Not Reportable 07/12/19 19:21 Plt Morphology Comment Not Reportable 07/12/19 19:21 RBC Morphology Not Reportable 07/12/19 19:21 Dimorphic RBCs Not Reportable 07/12/19 19:21 Polychromasia Few 07/12/19 19:21 Hypochromasia 2+ 07/12/19 19:21 Poikilocytosis Not Reportable 07/12/19 19:21 Anisocytosis 2+ 07/12/19 19:21 Microcytosis 1+ 07/12/19 19:21 Macrocytosis Few 07/12/19 19:21 Spherocytes Not Reportable 07/12/19 19:21 Pappenheimer Bodies Not Reportable 07/12/19 19:21 Sickle Cells Not Reportable 07/12/19 19:21 Target Cells Few 07/12/19 19:21 Tear Drop Cells Rare 07/12/19 19:21 Ovalocytes Not Reportable 07/12/19 19:21 Helmet Cells Not Reportable 07/12/19 19:21 [place] Bodies Not Reportable 07/12/19 19:21 [place] Rings Not Reportable 07/12/19 19:21 [place] Cells Not Reportable 07/12/19 19:21 Bite Cells Not Reportable 07/12/19 19:21 Crenated Cell Not Reportable 07/12/19 19:21 Elliptocytes Not Reportable 07/12/19 19:21 Acanthocytes (Spur) Not Reportable 07/12/19 19:21 Rouleaux Not Reportable 07/12/19 19:21 Hemoglobin C Crystals Not Reportable 07/12/19 19:21 Schistocytes Not Reportable 07/12/19 19:21 Malaria parasites Not Reportable 07/12/19 19:21 Greg Bodies Not Reportable 07/12/19 19:21 Hem Pathologist Commnt No 07/12/19 19:21 Sodium 137 mmol/L (137-145) 07/14/19 05:31 Potassium 3.9 mmol/L (3.6-5.0) 07/14/19 05:31 Chloride 105.1 mmol/L (98-107) 07/14/19 05:31 Carbon Dioxide 24 mmol/L (22-30) 07/14/19 05:31 Anion Gap 12 mmol/L 07/14/19 05:31 BUN 6 mg/dL (7-17) L 07/14/19 05:31 Creatinine 0.6 mg/dL (0.7-1.2) L 07/14/19 05:31 Estimated GFR > 60 ml/min 07/14/19 05:31 BUN/Creatinine Ratio 10 % 07/14/19 05:31 Glucose 66 mg/dL (65-100) 07/14/19 05:31 Calcium 8.4 mg/dL (8.4-10.2) 07/14/19 05:31 Iron 13 ug/dL (37-170) L 07/14/19 05:31 TIBC 353 mcg/dL (250-450) 07/14/19 05:31 Total Bilirubin 0.30 mg/dL (0.1-1.2) 07/12/19 19:21 AST 16 units/L (5-40) 07/12/19 19:21 ALT 9 units/L (7-56) 07/12/19 19:21 Alkaline Phosphatase 49 units/L (35-129) 07/12/19 19:21 Total Protein 8.9 g/dL (6.3-8.2) H 07/12/19 19:21 Albumin 4.4 g/dL (3.9-5) 07/12/19 19:21 Albumin/Globulin Ratio 1.0 % 07/12/19 19:21 Lipase 25 units/L (13-60) 07/12/19 19:21 HCG, Qual Negative (Negative) 07/12/19 19:21 Urine Color Yellow (Yellow) 07/12/19 20:53 Urine Turbidity Clear (Clear) 07/12/19 20:53 Urine pH 5.0 (5.0-7.0) 07/12/19 20:53 Ur Specific [place] 1.012 (1.003-1.030) 07/12/19 20:53 Urine Protein <15 mg/dl mg/dL (Negative) 07/12/19 20:53 Urine Glucose (UA) Neg mg/dL (Negative) 07/12/19 20:53 Urine Ketones Neg mg/dL (Negative) 07/12/19 20:53 Urine Blood Neg (Negative) 07/12/19 20:53 Urine Nitrite Neg (Negative) 07/12/19 20:53 Urine Bilirubin Neg (Negative) 07/12/19 20:53 Urine Urobilinogen < 2.0 mg/dL (<2.0) 07/12/19 20:53 Ur Leukocyte Esterase Neg (Negative) 07/12/19 20:53 Urine WBC (Auto) 1.0 /HPF (0.0-6.0) 07/12/19 20:53 Urine RBC (Auto) 2.0 /HPF (0.0-6.0) 07/12/19 20:53 U Epithel Cells (Auto) 3.0 /HPF (0-13.0) 07/12/19 20:53 Urine Mucus Few /HPF 07/12/19 20:53 Blood Type A POSITIVE 07/12/19 21:50 Antibody Screen Positive 07/12/19 21:50 Antibody Identification Anti-Sofia 07/12/19 21:50 Crossmatch See Detail 07/12/19 21:50 Active Medications - Current Medications Current Medications: Generic Name Dose Route Start Last Admin Trade Name Freq PRN Reason Stop Dose Admin Acetaminophen 650 mg 07/13/19 04:02 07/14/19 10:30 Tylenol PO 650 mg Q4H PRN Administration Pain MILD(1-3)/Fever >100.5/HERNANDEZ Albuterol 2.5 mg 07/13/19 15:25 Proventil IH Q4HRT PRN Shortness Of Breath Benzonatate 100 mg 07/13/19 18:57 07/14/19 00:06 Tessalon Perles PO 100 mg Q8HR PRN Administration Cough Fentanyl 50 mcg 07/13/19 04:29 07/13/19 06:35 Sublimaze IV 50 mcg Q5MIN PRN Administration Pain , Severe (7-10) Ferrous Sulfate 325 mg 07/14/19 14:00 Feosol PO TID JAQUI Dextrose/Sodium Chloride 1,000 mls @ 125 mls/hr 07/13/19 07:00 07/14/19 00:10 D5/0.45ns IV 125 mls/hr DIRECT JAQUI Administration Levofloxacin/Dextrose 500 mg in 100 mls @ 100 mls/hr 07/13/19 10:00 07/14/19 10:23 Levaquin 500mg/100ml IV 07/16/19 09:59 100 mls/hr Q24HR JAQUI Administration Protocol Morphine Sulfate 2 mg 07/13/19 06:09 07/14/19 08:53 Morphine IV 2 mg Q3H PRN Administration Pain, Moderate (4-6) Ondansetron HCl 4 mg 07/13/19 06:09 07/13/19 21:36 Zofran IV 4 mg Q4H PRN Administration N/V unrelieved by Sabrina Sodium Chloride 10 ml 07/13/19 10:00 07/13/19 21:34 Sodium Chloride Flush Syringe 10 Ml IV 10 ml BID JAQUI Administration Sodium Chloride 10 ml 07/13/19 04:02 Sodium Chloride Flush Syringe 10 Ml IV PRN PRN LINE FLUSH
[2019-07-14] MEDS: FERROUS SULFATE 325 MG TAB PO SCH ×2 (17:48→21:01)
[2019-07-14] MEDS: ONDANSETRON 4 MG/2 ML INJ IV PRN (21:17)
[2019-07-15] MEDS: ONDANSETRON 4 MG/2 ML INJ IV PRN (01:30)
[2019-07-15] MEDS: MORPHINE 2 MG/1 ML INJ IV PRN ×3 (01:30→14:45)
[2019-07-15 06:02] LABS: Hematocrit 27.2 % (30.3-42.9); Hemoglobin 8.3 gm/dl (10.1-14.3); Mean Corpuscular HGB Conc 31 % (30-34); Red Blood Count 4.53 M/mm3 (3.65-5.03)
[2019-07-15 06:16] LABS: Mean Corpuscular Volume 60 fl (79-97); Red Cell Distribution Width 28.7 % (13.2-15.2)
[2019-07-15] MEDS: D5W/0.45% NACL 1,000 ML IV SCH (06:34)
[2019-07-15 06:53] LABS: Platelet Count 138 K/mm3 (140-440)
[2019-07-15] MEDS: FERROUS SULFATE 325 MG TAB PO SCH ×2 (08:19→14:49)
[2019-07-15 08:27] LABS: Anisocytosis 3+; Total Cells Counted 100
[2019-07-15 08:28] LABS: Giant Platelets Few; Hypochromasia 2+
--- NOTE | 2019-07-15 15:17 | Discharge Summary ---
Providers - Providers Date of Admission: 07/13/19 03:42 Date of discharge: 07/15/19 Attending physician: SHAUN MORALES 07/13/19 03:14 Consult to Physician [CONS] Stat Comment: Dr. Chow spoke with Dr. 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 Postprocedure, her H&H trended down for which she received 2 units of PRBCS. She also developed ileus. Subsequently, she improved clinically and was then cleared by surgery for discharge with clinic follow-up. Disposition: TO HOME OR SELFCARE Time spent for discharge: 30 mins Core Measure Documentation - Palliative Care Palliative Care/ Comfort Measures: Not Applicable - Core Measures Any of the following diagnoses?: none Exam - Constitutional Vitals: Temp Pulse Resp BP Pulse Ox 97.8 F 73 18 100/59 99 07/15/19 11:33 07/15/19 11:33 07/15/19 11:33 07/15/19 11:33 07/15/19 11:33 General appearance: Present: no acute distress, well-nourished - EENT Eyes: Present: PERRL, EOM intact ENT: hearing intact, clear oral mucosa - Neck Neck: Present: supple, normal ROM - Respiratory Respiratory effort: normal Respiratory: bilateral: CTA - Cardiovascular Rhythm: regular Heart Sounds: Present: S1 & S2. Absent: rub, click - Extremities Extremities: No edema - Abdominal General gastrointestinal: Present: soft, non-tender, non-distended, normal bowel sounds, other (surgical site clean) - Integumentary Integumentary: Present: clear, warm, dry - Musculoskeletal Musculoskeletal: gait normal, strength equal bilaterally - Psychiatric Psychiatric: appropriate mood/affect, intact judgment & insight - Neurologic Neurologic: CNII-XII intact, moves all extremities Plan Follow up with: PRIMARY CARE, [Primary Care Provider] - 3-5 Days Prescriptions: Ferrous Sulfate [Ferrous Sulfate 324 MG] 324 mg PO TID #90 tablet. levoFLOXacin [Levaquin TAB] 500 mg PO QDAY #5 tablet HYDROcodone/APAP 5-325 [[place] 5/325] 1 each PO Q6HR PRN #20 tablet PRN Reason: Pain
[2019-07-15 17:25] VITALS: BP 112/72
== END 2019-07-15 17:05 | disposition home or self-care (01) ==
LOC: ED 17:41 → INTOOBSV 07-13 03:42 → 3B-SURG 07-13 03:42
PROVIDERS: ADMIT Internal Medicine; ATTEND Internal Medicine
DX: K35.80 Unspecified acute appendicitis (principal); R11.2 Nausea with vomiting, unspecified; J45.909 Unspecified asthma, uncomplicated; D50.9 Iron deficiency anemia, unspecified; Z71.6 Tobacco abuse counseling; Z79.899 Other long term (current) drug therapy
CPT/HCPCS: 36415; 44970; 74177; 80048; 80053; 81001; 82962; 83550; 83690; 84703; 85007; 85025; 86850; 86870; 86900; 86901; 86922; 87075; 87116; 88304; 96361; 96365; 96366; 96367; 96375; 96376; 99284; 99406; G0378; J1170; J1200; J1885; J1956; J2270; J2405; J2543; J2704; J2710; J3010; J7030; J7040; P9016; Q9967; 86920